=== PATIENT | female | born 1960 | race Caucasian/White ===

== ENCOUNTER 2019-11-22 09:16 | Outpatient (CLI) | payer OTHER, SELFPAY ==
--- NOTE | 2019-11-22 09:24 | CT_ITS ---
WS: [id number] CT ABDOMEN PELVIS TECHNIQUE: Contrast-enhanced CT of the abdomen and pelvis with coronal and sagittal reformatted image s. CLINICAL INFORMATION: RLQ PAIN COMPARISON: None. DLP: 949.[address] scans at [facility] use at least one of these dose optimization techniques: automat ed exposure control; mA and/or kV adjustment per patient size (includes targeted exams where dose is matched to clinical indication); or iterative reconstruction. FINDINGS: Mild diffuse fatty infiltration liver. Left hepatic cyst measuring 11 mm. Normal gallbladder. Normal portal vein and splenic vein. Normal spleen. Lung bases are well aerated. Adrenal glands are normal. Normal renal parenchymal enhancement. Normal caliber abdominal aorta. Urine distended bladder. Rectosigmoid constipation. Tiny fat-containing umbilical hernia. No abdominal or pelvic lymphadenopat hy. Lumbar curve convex left. CT/CT abdomen pelvis w con* [id number] IMPRESSION: 1. Mild diffuse fatty infiltration the liver. 2. Small hepatic cyst measuring 11 mm. 3. Normal renal Prig[place] enhancement. No hydronephrosis. 4. No abdominal or pelvic lymphadenopathy. 5. Rectosigmoid constipation. 6. Normal caliber abdominal aorta. 7. Urine distended bladder.
[2019-11-22] MEDS: iohexol 300 mg/mL 50 mL Btl PO (10:26)
[2019-11-22] MEDS: iohexol 300 mg/mL 100 mL Btl IV (11:20)
== END 2019-11-22 09:17 | disposition home or self-care (01) ==
PROVIDERS: Family Provider Family Medicine; PCP Family Medicine; Visit Provider Nurse Practitioner Family
DX: R10.31 Right lower quadrant pain (principal); K76.0 Fatty (change of) liver, not elsewhere classified; K76.89 Other specified diseases of liver; K59.09 Other constipation
CPT/HCPCS: 74177; Q9967

== ENCOUNTER 2020-05-23 13:55 | Outpatient (CLI) | payer OTHER, SELFPAY ==
--- NOTE | 2020-05-23 14:00 | MM_ITS ---
WS: [id number] BILATERAL SCREENING DIGITAL MAMMOGRAM WITH CAD HISTORY: SCREENING COMPARISON: 06/08/2014 and 03/30/2009 Bilateral CC and MLO views submitted. Computer aided detection analyzed. Breast composition: The breasts are heterogeneously dense, which may obscure small masses. No suspici ous masses, microcalcifications or architectural distortion. Benign-appearing calcifications in each breast. Mild progression of these calcifications the prior study. There are mildly prominent lymph no milly in the LEFT axilla which were also present on the prior study from 03/30/2009. MM/[place] [id number] IMPRESSION: BI-RADS: 2-Benign FOLLOW UP: 1 Year Follow-up
== END 2020-05-23 13:56 | disposition home or self-care (01) ==
PROVIDERS: PCP Nurse Practitioner Family; Visit Provider Nurse Practitioner Family
DX: Z12.31 Encounter for screening mammogram for malignant neoplasm of breast (principal)
CPT/HCPCS: 77067

== ENCOUNTER 2022-11-07 14:37 | Outpatient (CLI) | payer OTHER, SELFPAY ==
--- NOTE | 2022-11-07 14:47 | MM_ITS ---
WS: [id number] BILATERAL 3D TOMOSYNTHESIS DIGITAL SCREENING MAMMOGRAPHY WITH CAD CLINICAL INFORMATION: SCREENING HISTORY: Screening mammogram. No current complaints. COMPARISON: 2020 TECHNIQUE: Bilateral CC and MLO views. FINDINGS: The breasts are composed of heterogeneous fibroglandular density tissue, which can limit the detectio n of small underlying mass lesions. No suspicious mass, asymmetry, calcifications, or architectural d istortion. No evidence of malignancy. Stable punctate and clustered calcifications bilaterally. MM/[place] [id number] IMPRESSION: BI-RADS: 2-Benign FOLLOW UP: 1 Year Follow-up Recommend return to annual screening mammography.
== END 2022-11-07 14:38 | disposition home or self-care (01) ==
LOC: RAD 14:39
PROVIDERS: PCP Nurse Practitioner Family; Visit Provider Nurse Practitioner Family
DX: Z12.31 Encounter for screening mammogram for malignant neoplasm of breast (principal)
CPT/HCPCS: 77063; 77067

== ENCOUNTER 2022-11-20 14:54 | Outpatient (CLI) | payer OTHER, SELFPAY ==
--- NOTE | 2022-11-20 15:21 | US_ITS ---
WS: [id number] THYROID ULTRASOUND HISTORY: ENLARGED THYROID; NONTOXIC GOITER COMPARISON: None available. Right lobe: 1.2 cm x 1.2 cm x 3.7 cm (w x ap x l). Volume: 2.8 cm3. Normal size and echotexture. No significant are dominant nodules are present. Left lobe: 1.7 cm x 0.8 cm x 3.4 cm (w x ap x l). Volume: 2.3 cm3. Normal size and echotexture. No significant or dominant nodules are present. Isthmus: 0.2 cm. US/US thyroid [id number] IMPRESSION: Normal thyroid ultrasound.
== END 2022-11-20 14:55 | disposition home or self-care (01) ==
LOC: RAD 14:54
PROVIDERS: PCP Nurse Practitioner Family; Visit Provider Nurse Practitioner Family
DX: E04.9 Nontoxic goiter, unspecified (principal)
CPT/HCPCS: 76536

== ENCOUNTER 2023-02-01 11:00 | Day surgery (SDC) | payer OTHER, SELFPAY ==
[2023-02-01] VITALS (8 sets, daily range): BP systolic 137–171; BP diastolic 66–106; PULSE 82–104; RESP 12–20; TEMP 36.1–36.8; O2SAT 96–100; BMI 26.5
--- NOTE | 2023-02-01 11:24 | XRR_ITS ---
PROCEDURE INFORMATION: Exam: XR Chest Exam date and time: 02/01/2023 11:31 AM Age: 62 years old Clinical indication: Sternal or substernal pain; Patient HX: PT choked on food, feels something stuck in her chest in sternal area; Additional info: Eposphageal pain-fb TECHNIQUE: Imaging protocol: Radiologic exam of the chest. Views: 1 view. COMPARISON: CT abdomen pelvis w con* [id number] 11/22/2019 11:16 AM FINDINGS: Lungs: Unremarkable. No consolidation. Pleural spaces: Unremarkable. No pleural effusion. No pneumothorax. Heart/Mediastinum: Unremarkable. No cardiomegaly. No radiopaque foreign body detected within the esophagus. Bones/joints: There is mild scoliosis of the thoracolumbar spine. No acute bony abnormalities. XR/XR chest 1V portable [id number] IMPRESSION: Negative for active cardiopulmonary disease.
--- NOTE | 2023-02-01 11:26 | W.ED.ABDPA2 ---
HPI - Abdominal Pain General: Chief Complaint: Airway/Esophagus Foreign Body Stated Complaint: food lodged in throat Time Seen by Provider: 02/01/23 11:12 Source: patient Mode of arrival: ambulatory Limitations: no limitations History of Present Illness: This patient presents to our emergency department because of sensation of something lodged in her esophagus. She states that she was in her normal state of health this morning and decided to take her usual biotin pills. She states that she took 3 at once which she does not usually do and then noted that something felt like it lodged in her esophagus. She states that she attempted to eat some food consisting of chicken and the symptoms seem to worsen. She has had consistent and persistent discomfort in her lower sternal region and she has not vomited but has difficulty with swallowing secretions and has had gagging. She does relate that rarely on occasion in the past she has had a little bit difficulty with swallowing some food products and she has had to gag and vomit it back up but its not been very pervasive and has been very unusual for least episodes to occur. She denies any bloody emesis etc. She denies any history of cardiovascular disease. She states the symptoms began after the pills and as described above. She currently takes no other prescribed medication and is otherwise in good health. Pain Consistency: constant Associated Symptoms: Denies chills, dysuria, fever(s), heartburn, hematemesis, syncope and vomiting Review of Systems Const: Denies: fever(s) or chills Eyes: Denies: change in vision ENMT: Denies: throat pain, odynophagia, nasal discharge or nasal congestion Card: Denies: palpitations, syncope or pre-syncope Resp: Denies: productive cough or non-productive cough GI: Reports: abdominal pain; Denies: vomiting, hematemesis or heartburn : Denies: flank pain, difficulty voiding or dysuria Musc: Denies: back pain, extremity pain or extremity swelling Neuro: Denies: headache(s), numbness in extremities or weakness in extremities Neo/Lymph: Denies: easy bruising or easy bleeding Physical Exam Narrative: EXAM NARRATIVE: Appears slightly uncomfortable but is able to answer questions and interact appropriately. Const: COMMON NORMALS: average body habitus, patient oriented x3, healthy appearing and alert GENERAL APPEARANCE: cooperative ORIENTATION/CONSCIOUSNESS: Yes awake HENMT: COMMON NORMALS: normocephalic, Normal nasal mucous membranes and turbinates present, moist oral mucous membranes and oropharynx normal HEAD & SCALP: normocephalic FACE & SINUS: normal facial exam NOSE: Normal nasal mucous membranes and turbinates present Eye: COMMON NORMALS: Equal, round and reactive pupils present, EOMs intact bilaterally and conjunctivae normal CONJUNCTIVA: Yes conjunctivae normal PUPIL: Yes Equal, round and reactive pupils present Neck/C-Spine: COMMON NORMALS: full ROM, no lymphadenopathy, supple and Thyroid normal THYROID: Thyroid normal Chest: COMMONS NORMALS: normal inspection of the chest and normal palpation of entire chest wall Resp: COMMON NORMALS: normal respiratory effort, No retractions, No use of accessory muscles and clear to auscultation bilaterally EFFORT & INSPECTION: Yes able to speak in complete sentences AUSCULTATION: clear to auscultation bilaterally Cardio: COMMON NORMALS: regular rate, regular rhythm, No murmurs present (Cardio) and Peripheral pulses 2+ throughout RATE: regular rate RHYTHM: regular rhythm PERIPHERAL PULSES: Peripheral pulses 2+ throughout GI: COMMON NORMALS: Normal to inspection, nondistended, normoactive bowel sounds present, Soft to palpation, non-tender and no masses PALPATION: Yes Soft to palpation : COMMON NORMALS: Yes no CVA tenderness BLADDER/KIDNEY EXAM: Yes no CVA tenderness Back/Pelvis: COMMON NORMALS: no CVA tenderness, thoracic and lumbar spine normal to inspection, no thoracic nor lumbar tenderness and thoraco-lumbar ROM normal Extremity: COMMON NORMALS: normal to inspection, full ROM, capillary refill normal, no calf tenderness and no pedal edema Neuro: COMMON NORMALS: patient oriented x3, moves all extremities, no focal motor deficits and no sensory deficits noted SENSORIUM/ORIENTATION: Yes alert CRANIAL NERVES: Yes CN normal except as noted Psych: COMMON NORMALS: mental status grossly normal Skin: COMMON NORMALS: no rashes or lesions noted, no wounds and turgor normal GENERAL SKIN EXAM: no rashes or lesions noted and turgor normal Course Reevaluation(s): Reevaluation #1: After glucagon patient was reevaluated. She continues to be unable to swallow secretions and/or water. She has regurgitated each of those on several occasions. At this point she will be referred for endoscopy. Time: 12:02 Consultations: Consultation #1: Consulted Dr. Gaspar who is on-call for endoscopy. He will come in and evaluate her for EGD. Time: 12:03 Vital Signs: Vital signs: Vital Signs Temperature 98.3 F 02/01/23 11:05 Pulse Rate 90 02/01/23 11:05 Respiratory Rate 16 02/01/23 11:05 Blood Pressure 171/106 02/01/23 11:05 Pulse Oximetry 96 02/01/23 11:05 Oxygen Delivery Me thod Room Air 02/01/23 11:05 MDM - Abdominal Pain Medical Decision Making This patient came to the emergency department with the questionable history that suggested possible impacted medication and or possible food bolus in her distal esophagus. She did have a history of rare but similar symptoms to a lesser extent in the past has never required intervention. She is uncomfortable but does not have any suggestion of impending airway compromise, or other pathology needing immediate attention. We will give her a trial of glucagon and then reevaluate and then if unsuccessful and still symptomatic we will go ahead and discuss with endoscopy. Patient remained stable but failed to respond to usual medication measures for possible esophageal food bolus. She continues to have difficulty swallowing secretions water etc. We have contacted general surgery for endoscopy. Lab Data I reviewed the patient's lab results. Labs/Radiology: Radiology Impressions Chest X-Ray 02/01/23 11:24 IMPRESSION: Negative for active cardiopulmonary disease. Discharge Plan Discharge Patient Disposition: Placed in Observation Clinical Impression: Esophageal foreign body Condition: Stable Prescriptions: No Action Vitamin B-12 1,000 mcg Tablet 1,000 mcg PO QAM Vitamin C 500 mg Tablet 500 mg PO QAM biotin 10,000 mcg Capsule 30,000 mcg PO QAM Rx Instructions: (3 CAPS) Vitamin D3 25 mcg (1,000 unit) Capsule 1,000 unit PO QAM Referrals: Lucy Ghosh FNP [Primary Care Provider] - Coding Level of Care Code ED Certified Athletic Trainer for Brigida Shelton
[2023-02-01] MEDS: ondansetron 2 mg/ML SDV 2 mL 4 MG IVP (11:45)
[2023-02-01] MEDS: glucagon 1 mg/mL KIT 1 mL IV (11:46)
--- NOTE | 2023-02-01 11:52 | PC.NURSE ---
PT PLACED ON CONTINUOUS SPO2, NIBP, AND CM.
--- NOTE | 2023-02-01 13:04 | PM.HP ---
Providers/Chief Complaint Primary Care Provider: RENATO Abarca Chief Complaint: food lodged in throat History of Present Illness Tonia Norman is a 62 year old female who presented to the hospital with 1 day history of inability to swallow her saliva. She reports that she had multiple pills this morning and then ate some chicken has a feeling of food caught in the bottom of her chest. She has had this happen before but was able to vomit up the food in the past. Pain is located in the center of her chest and does not radiate. Glucagon was attempted in the ER without success. Review of Systems General: Reports: 10 or more systems reviewed and unremarkable except in HPI and below Medications/Allergies Home Medications Medication Instructions Recorded Confirmed Last Taken Type ascorbic acid (vitamin C) 500 mg 500 mg PO QAM 02/01/23 02/01/23 02/01/23 History tablet (Vitamin C) biotin 10,000 mcg capsule 30,000 mcg PO QAM 02/01/23 02/01/23 02/01/23 History cholecalciferol (vitamin D3) 25 1,000 unit PO QAM 02/01/23 02/01/23 02/01/23 History mcg (1,000 unit) capsule (Vitamin D3) cyanocobalamin (vitamin B-12) 1,000 mcg PO QAM 02/01/23 02/01/23 02/01/23 History 1,000 mcg tablet (Vitamin B-12) Allergies Allergy/AdvReac Type Severity Reaction Status Date / Time No Known Allergies Allergy Verified 02/01/23 11:09 Vitals/I&O/Wt Last Vital Signs Temp 98.3 F 02/01/23 11:05 Pulse 90 02/01/23 11:05 Resp 16 02/01/23 11:05 BP 171/106 02/01/23 11:05 Pulse Ox 96 02/01/23 11:05 O2 Del Method Room Air 02/01/23 11:05 Weight last 48 hrs Weight 145 lb Physical Exam Narrative: General : Patient is well developed , no acute distress, oriented x3 Head : Normal cephalic, a-traumatic. Ears : Pinnae and external canal are normal. Hearing is normal. Eyes : PERRLA, Sclera and injection are normal. No conjunctival discharge. Nose : Mucous membranes are without erythema. Throat : buccal mucosa is normal, gums are without significant recession or hypertrophy. Lungs : Equal chest rise bilaterally, no use of accessory muscles, trachea is midline. Cor : Rate and rhythm are normal. Abdomen : Soft, ND, NT, no g/r/m Extremities : No edema, no cyanosis or clubbing, dorsalis pedis pulses are present bilaterally, non-tender to palpation of calves. Upper extremities are normal bilaterally. Back : non-tender to palpation, no CVA tenderness. Neuro : CN II - XII intact, Upper and lower extremities have equal and full strength A&P Assessment and plan (1) Esophageal foreign body: Plan EGD The risks and benefits of the procedure, including bleeding, infection, intestinal perforation requiring surgery, missed lesion were explained to the patient. The patient is understanding of the risks and wishes to proceed. Attestations Medical Necessity Statement*: Home after the procedure Coding Level of Care Code 84613 Diagnoses Esophageal foreign body T18.108A
[2023-02-01] MEDS: lactated ringers 1,000 ML 100 ML IV (13:15)
--- NOTE | 2023-02-01 13:51 | PM.DCS ---
Discharge Providers Date of Discharge: February 01, 2023 Attending Provider at Discharge: Oleksandr Gaspar DO Primary Care Provider: RENATO Abarca Diagnoses at Discharge Discharge Diagnosis (1) Esophageal foreign body: Status: Acute Reason for Visit Reason for Visit: food lodged in throat Hospital Course Hospital Course This very pleasant 62-year-old female who presented to the hospital with esophageal food impaction. She underwent EGD with clearance of the impaction. She is discharged home in good condition Physical Exam Narrative: General : Patient is well developed , no acute distress, oriented x3 Head : Normal cephalic, a-traumatic. Ears : Pinnae and external canal are normal. Hearing is normal. Eyes : PERRLA, Sclera and injection are normal. No conjunctival discharge. Nose : Mucous membranes are without erythema. Throat : buccal mucosa is normal, gums are without significant recession or hypertrophy. Lungs : Equal chest rise bilaterally, no use of accessory muscles, trachea is midline. Cor : Rate and rhythm are normal. Abdomen : Soft, ND, NT, no g/r/m Extremities : No edema, no cyanosis or clubbing, dorsalis pedis pulses are present bilaterally, non-tender to palpation of calves. Upper extremities are normal bilaterally. Back : non-tender to palpation, no CVA tenderness. Neuro : CN II - XII intact, Upper and lower extremities have equal and full strength Discharge Data Studies Completed and Pending Completed Studies During Hospitalization Category Date Time Status XR chest 1V portable [id number] Stat Exams 02/01/23 11:24 Completed Radiology Impressions Chest X-Ray 02/01/23 11:24 IMPRESSION: Negative for active cardiopulmonary disease. Procedures Performed EGD with clearance of esophageal food impaction Vitals Last Vital Signs Temp 97 F L 02/01/23 13:26 Pulse 96 02/01/23 13:26 Resp 16 02/01/23 13:26 BP 171/106 02/01/23 13:26 Pulse Ox 99 02/01/23 13:26 O2 Del Method Room Air 02/01/23 13:26 Discharge Plan Discharge Patient Disposition: Home Condition: Stable Prescriptions: Continued Vitamin B-12 1,000 mcg Tablet 1,000 mcg PO QAM Vitamin C 500 mg Tablet 500 mg PO QAM biotin 10,000 mcg Capsule 30,000 mcg PO QAM Rx Instructions: (3 CAPS) Vitamin D3 25 mcg (1,000 unit) Capsule 1,000 unit PO QAM Discharge Orders: Discharge Order (Routine); Ordered 02/01/23 Ordered By: Oleksandr Gaspar Referrals: Lucy Ghosh FNP [Primary Care Provider] - Oleksandr Gaspar DO [Physician] - 2 weeks Discharge Diet: Full LIquid Discharge Activity: Resume usual activity Activity Restrictions/Additional Instructions: Full liquid diet for 2 days Discharge Attestations Time Spent in Discharge Care*: less than 30 min Quality Metrics Clinical Quality Measures [ No reported AMI, CVA or VTE this stay] Coding Level of Care Code Acute Code for Chg Fwd Diagnoses Esophageal foreign body T18.108A
--- NOTE | 2023-02-01 13:52 | P.PCN_ITS ---
PACU note Narrative: VSS, Good respiratory effort, report to [employer] Exam: awake
--- NOTE | 2023-02-01 13:52 | P.ANESASSM_ITS ---
Pre-Anesthetic Assessment Height/Weight: Height 1.57 m Weight 65.771 kg Temp Pulse Resp BP Pulse Ox O2 Del Method 97.4 F L 99 12 158/66 96 Room Air 02/01/23 13:49 02/01/23 13:49 02/01/23 13:49 02/01/23 13:49 02/01/23 13:49 02/01/23 13:49 Operation Date: 02/01/23 13:00 Proposed Procedures p EGD(Not Applicable) - Oleksandr Gaspar DO Familial anesthetic complications: none Was Beta Dane taken within 24 hours: N/A Was Clonidine taken within 24 hours: N/A Social No alcohol and No tobacco Exam alert, oriented x 3, clear to auscultation bilaterally and regular rate & rhythm Airway Submandibular: within normal limits Cervical ROM: within normal limits Mallampati: Class II Dentition: false GI Food bolus Anesthetic Plan ASA status: 2E Anesthesia: General (RSI) Medications/Allergies Home Medications Medication Instructions Recorded Confirmed Last Taken Type ascorbic acid (vitamin C) 500 mg 500 mg PO QAM 02/01/23 02/01/23 02/01/23 History tablet (Vitamin C) biotin 10,000 mcg capsule 30,000 mcg PO QAM 02/01/23 02/01/23 02/01/23 History cholecalciferol (vitamin D3) 25 1,000 unit PO QAM 02/01/23 02/01/23 02/01/23 History mcg (1,000 unit) capsule (Vitamin D3) cyanocobalamin (vitamin B-12) 1,000 mcg PO QAM 02/01/23 02/01/23 02/01/23 His tory 1,000 mcg tablet (Vitamin B-12) Allergies Allergy/AdvReac Type Severity Reaction Status Date / Time No Known Allergies Allergy Verified 02/01/23 11:09 Current Medications Generic Name Dose Route Start Last Admin Trade Name Freq PRN Reason Stop Dose Admin Lactated Ringer's 1,000 mls @ 100 mls/hr 02/01/23 12:15 02/01/23 13:15 Lactated Ringers IV 100 mls/hr .Q10H YADIRA Administration Data Anesthesia Cardiac Studies: No Data to Display
--- NOTE | 2023-02-01 13:52 | PM.PACU ---
PACU note Narrative: VSS, Good respiratory effort, report to TRANSITION MGR RN Exam: awake
--- NOTE | 2023-02-01 13:53 | ANE.PACU2 ---
Inpatient post-anesthesia follow up: Airway intact: Yes Vital signs: Temperature 97.4 F Pulse Rate 99 Respiratory Rate 12 Blood Pressure 158/66 Pulse Oximetry 96 Oxygen Delivery Me thod Room Air Oxygen Flow Rate Fraction of Inspir ed Oxygen Hydration adequate: Yes Nausea and vomiting: No Pain level: 2 Mental status: Baseline
== END 2023-02-01 14:35 | disposition home or self-care (01) ==
LOC: ER 12:38 → GILAB 13:04
PROVIDERS: Emergency Provider Emergency Medicine; PCP Nurse Practitioner Family; Visit Provider Surgery
PROC: 0DJ08ZZ Inspection of Upper Intestinal Tract, Via Natural or Artificial Opening Endoscopic (ICD-10-PCS; CPT 43235; principal; 2023-02-01 13:00)
DX: X58.XXXA Exposure to other specified factors, initial encounter (principal); T18.108A Unspecified foreign body in esophagus causing other injury, initial encounter
CPT/HCPCS: 43247; 71045; 99285; J0330; J1100; J1610; J2405; J2704; J3010; J7120

== ENCOUNTER 2023-04-17 07:20 | Day surgery (SDC) | payer OTHER, SELFPAY ==
[2023-04-15 10:20] VITALS: BMI 26.5
[2023-04-17 07:40] VITALS: BP 146/72; PULSE 65; RESP 16; TEMP 36.3; O2SAT 98
[2023-04-17] MEDS: sodium chloride 0.9% 1,000 ML 30 ML IV (07:50)
--- NOTE | 2023-04-17 08:06 | ANES.PREANE2 ---
Pre-Anesthetic Assessment Height/Weight: Height 1.57 m Weight 65.771 kg Temp Pulse Resp BP Pulse Ox O2 Del Method 97.3 F L 65 16 146/72 98 Room Air 04/17/23 07:40 04/17/23 07:40 04/17/23 07:40 04/17/23 07:40 04/17/23 07:40 04/17/23 07:40 Preop Diagnosis: dysphagia Operation Date: 04/17/23 08:30 Proposed Procedures p [id number] egd w/balloon dial R13.10(Not Applicable) - Owen Santos MD Familial anesthetic complications: none Was Beta Dane taken within 24 hours: N/A Was Clonidine taken within 24 hours: N/A Last intake: Intake Last Liquid Date 04/16/23 Last Liquid Time 20:30 Last Solid Date 04/16/23 Last Solid Time 20:30 Social Alcohol (occasional) and No tobacco Exam alert and oriented x 3 Airway Submandibular: within normal limits Cervical ROM: within normal limits Mallampati: Class I Dentition: false History/ROS No significant history except as noted Pulmonary None reported CV/HEM None reported None reported Hepatic None reported GI None reported Metabolic None reported Musc/skel None reported Neuropsych None reported Anesthetic Plan ASA status: 2 Anesthesia: Anesthesia Evaluation, General and MAC Medications/Allergies Home Medications Medication Instructions Recorded Confirmed Last Taken Type ascorbic acid (vitamin C) 500 mg 500 mg PO QAM 02/01/23 04/15/23 04/15/23 History tablet (Vitamin C) biotin 10,000 mcg capsule 30,000 mcg PO QAM 02/01/23 04/15/23 04/15/23 History cholecalciferol (vitamin D3) 25 1,000 unit PO QAM 02/01/23 04/15/23 04/15/23 History mcg (1,000 unit) capsule (Vitamin D3) cyanocobalamin (vitamin B-12) 1,000 mcg PO QAM 02/01/23 04/15/23 04/15/23 History 1,000 mcg tablet (Vitamin B-12) pantoprazole 40 mg tablet,delayed 40 mg PO BID 6 weeks #84 tabs 02/18/23 04/15/23 Unknown Rx release (Protonix) Allergies Allergy/AdvReac Type Severity Reaction Status Date / Time No Known Allergies Allergy Verified 04/17/23 07:39 Current Medications Generic Name Dose Route Start Last Admin Trade Name Jay PRN Reason Stop Dose Admin Sodium Chloride 1,000 mls @ 30 mls/hr 04/17/23 07:45 04/17/23 07:50 Sodium Chloride 0.9% IV 30 mls/hr .Q24H YADIRA Administration PFSH Anesthesia Surgical History Hx of section Family History Mother Cancer stomach cancer Social History (Updated 03/20/23 @ 10:[address]) Smoking and tobacco status: never smoked Alcohol intake: current Alcohol intake frequency: holidays/special occasions only Data Anesthesia Cardiac Studies: No Data to Display
--- NOTE | 2023-04-17 08:40 | W.PM.OPSUD ---
Surgery/Procedure H&P Update DATE OF PROCEDURE: April 17, 2023 DATE H&P PERFORMED: 03/20/23 H&P UPDATE INFORMATION: I have reviewed H&P completed within last 30 days, I have examined patient prior to procedure, No changes to prior documentation and H&P is in [facility] EMR on date indicated PREOP DIAGNOSIS: dysphagia PLANNED PROCEDURE: Operation Date: 04/17/23 08:30 Proposed Procedures p [id number] egd w/balloon dial R13.10(Not Applicable) - Owen Santos MD
[2023-04-17 08:54] VITALS: BP 121/71; PULSE 77; RESP 16; TEMP 36.1; O2SAT 94
[2023-04-17 09:04] VITALS: BP 129/75; PULSE 96; RESP 16; O2SAT 96
[2023-04-17 09:25] VITALS: BP 122/88; PULSE 73; RESP 16; O2SAT 98
--- NOTE | 2023-04-17 15:07 | ANE.PACU2 ---
Inpatient post-anesthesia follow up: Airway intact: Yes Vital signs: Temperature 97 F Pulse Rate 73 Respiratory Rate 16 Blood Pressure 122/88 Pulse Oximetry 98 Oxygen Delivery Me thod Room Air Oxygen Flow Rate Fraction of Inspir ed Oxygen Hydration adequate: Yes Nausea and vomiting: No Pain level: 1 Mental status: Baseline
== END 2023-04-17 10:10 | disposition home or self-care (01) ==
PROVIDERS: PCP Nurse Practitioner Family; Visit Provider Surgery
DX: R13.10 Dysphagia, unspecified (principal); K29.70 Gastritis, unspecified, without bleeding; K20.0 Eosinophilic esophagitis; D13.0 Benign neoplasm of esophagus
CPT/HCPCS: 43239; 88305; J2704; J7030

== ENCOUNTER 2023-11-27 14:03 | Outpatient (CLI) | payer OTHER, SELFPAY ==
--- NOTE | 2023-11-27 14:07 | MM_ITS ---
WS: [id number] BILATERAL 3D TOMOSYNTHESIS DIGITAL SCREENING MAMMOGRAPHY WITH CAD CLINICAL INFORMATION: SCREENING HISTORY: Screening mammogram. No current complaints. COMPARISON: 2022 TECHNIQUE: Bilateral CC and MLO views. FINDINGS: The breasts are composed of heterogeneous fibroglandular density tissue, which can limit the detectio n of small underlying mass lesions. No suspicious mass, asymmetry, calcifications, or architectural d istortion. No evidence of malignancy. Incidental punctate and clustered calcifications similar in [place]. Vascular calcification. IMPRESSION: MM/[place] [id number] BI-RADS: 2-Benign FOLLOW UP: 1 Year Follow-up Recommend return to annual screening mammography.
== END 2023-11-27 14:04 | disposition home or self-care (01) ==
LOC: RAD 14:03
PROVIDERS: PCP Nurse Practitioner Family; Visit Provider Nurse Practitioner Family
DX: Z12.31 Encounter for screening mammogram for malignant neoplasm of breast (principal)
CPT/HCPCS: 77063; 77067

== ENCOUNTER → 2024-01-07 14:17 | Outpatient (BNVA) | payer OTHER, SELFPAY | PROVIDERS: PCP Nurse Practitioner Family; Visit Provider Podiatrist Foot & Ankle Surgery | DX: M79.671 Pain in right foot (principal); M79.672 Pain in left foot; M21.611 Bunion of right foot; M21.612 Bunion of left foot; L60.8 Other nail disorders | CPT/HCPCS: 73630 ==

== ENCOUNTER 2024-01-22 10:49 | Outpatient (CLI) | payer OTHER, SELFPAY | END 2024-01-22 10:50 | disposition home or self-care (01) | LOC: LAB 10:51 | PROVIDERS: PCP Nurse Practitioner Family; Visit Provider Surgery | DX: R19.7 Diarrhea, unspecified (principal) | CPT/HCPCS: 83630; 83993 ==

== ENCOUNTER 2024-02-16 07:58 | Day surgery (SDC) | payer OTHER, SELFPAY ==
[2024-02-16 08:13] VITALS: BP 136/84; PULSE 73; RESP 18; TEMP 36.7; O2SAT 98; BMI 28.3
[2024-02-16] MEDS: sodium chloride 0.9% 1,000 ML 30 ML IV (08:27)
--- NOTE | 2024-02-16 08:41 | P.ANESASSM_ITS ---
Pre-Anesthetic Assessment Height/Weight: Height 1.57 m Weight 70.307 kg Temp Pulse Resp BP Pulse Ox O2 Del Method 98.1 F 73 18 136/84 98 Room Air 02/16/24 08:13 02/16/24 08:13 02/16/24 08:13 02/16/24 08:13 02/16/24 08:13 02/16/24 08:13 Operation Date: 02/16/24 09:15 Proposed Procedures p Colonoscopy 08933, G0105, Z12.11(Not Applicable) - Owen Santos MD Familial anesthetic complications: None Was Beta Dane taken within 24 hours: N/A Was Clonidine taken within 24 hours: N/A Last intake: Intake Last Liquid Date 02/16/24 Last Liquid Time 04:30 Last Solid Date 02/15/24 Last Solid Time 12:00 Social No alcohol and No tobacco Exam alert, oriented x 3, clear to auscultation bilaterally and regular rate & rhythm Airway Mallampati: Class II Dentition: false GI Gastroesophageal Reflux Disease Anesthetic Plan ASA status: 2 Anesthesia: MAC Risk of > 500 ml blood loss (7ml/kg in children): No Medications/Allergies Home Medications Medication Instructions Recorded Confirmed Last Taken Type ascorbic acid (vitamin C) 500 mg 500 mg PO QAM 02/01/23 02/11/24 02/12/24 History tablet (Vitamin C) cholecalciferol (vitamin D3) 25 1,000 unit PO QAM 02/01/23 02/11/24 02/12/24 History mcg (1,000 unit) capsule (Vitamin D3) cyanocobalamin (vitamin B-12) 1,000 mcg PO QAM 02/01/23 02/11/24 02/12/24 Histor y 1,000 mcg tablet (Vitamin B-12) acetaminophen 500 mg tablet 500 mg PO Q6H PRN Pain 02/16/24 02/16/24 Unknown History Allergies Allergy/AdvReac Type Severity Reaction Status Date / Time No Known Allergies Allergy Verified 02/11/24 10:42 Current Medications Generic Name Dose Route Start Last Admin Trade Name Freq PRN Reason Stop Dose Admin Sodium Chloride 1,000 mls @ 30 mls/hr 02/16/24 08:15 02/16/24 08:27 Sodium Chloride 0.9% IV 30 mls/hr .Q24H YADIRA Administration PFSH Anesthesia Surgical History Hx of section Family History Mother Cancer stomach cancer Social History Smoking and tobacco/nicotine status: never used tobacco/nicotine Alcohol intake: current Alcohol intake frequency: holidays/special occasions only Data Anesthesia Cardiac Studies: No Data to Display
--- NOTE | 2024-02-16 09:10 | P.HPUD_ITS ---
Surgery/Procedure H&P Update DATE OF PROCEDURE: February 16, 2024 DATE H&P PERFORMED: 01/19/24 H&P UPDATE INFORMATION: I have reviewed H&P completed within last 30 days, I have examined patient prior to procedure, No changes to prior documentation and [place] [facility] [place] PLANNED PROCEDURE: Operation Date: 02/16/24 09:15 Proposed Procedures p Colonoscopy 74221, G0105, Z12.11(Not Applicable) - Owen Santos MD
--- NOTE | 2024-02-16 09:10 | W.PM.OPSUD ---
Surgery/Procedure H&P Update DATE OF PROCEDURE: February 16, 2024 DATE H&P PERFORMED: 01/19/24 H&P UPDATE INFORMATION: I have reviewed H&P completed within last 30 days, I have examined patient prior to procedure, No changes to prior documentation and [place] is in [facility] [place] date indicated PLANNED PROCEDURE: Operation Date: 02/16/24 09:15 Proposed Procedures p Colonoscopy 59938, G0105, Z12.11(Not Applicable) - Owen Santos MD
[2024-02-16 09:33] VITALS: BP 115/68; PULSE 95; RESP 12; TEMP 36.4; O2SAT 96
[2024-02-16 09:37] VITALS: BP 127/70; PULSE 70; RESP 16; O2SAT 99
--- NOTE | 2024-02-16 09:55 | ANE.PACU2 ---
Inpatient post-anesthesia follow up: Airway intact: Yes Vital signs: Temperature 97.5 F Pulse Rate 70 Respiratory Rate 16 Blood Pressure 127/70 Pulse Oximetry 99 Oxygen Delivery Me thod Room Air Oxygen Flow Rate Fraction of Inspir ed Oxygen Hydration adequate: Yes Nausea and vomiting: No Pain level: 1 Mental status: Baseline
== END 2024-02-16 09:55 | disposition home or self-care (01) ==
PROVIDERS: PCP Nurse Practitioner Family; Visit Provider Surgery
PROC: 0DJD8ZZ Inspection of Lower Intestinal Tract, Via Natural or Artificial Opening Endoscopic (ICD-10-PCS; CPT 45378; principal; 2024-02-16 09:15)
DX: Z12.11 Encounter for screening for malignant neoplasm of colon (principal); K21.9 Gastro-esophageal reflux disease without esophagitis
CPT/HCPCS: 45378; J2704; J7030

== ENCOUNTER 2024-08-28 07:46 | Emergency (ER) | payer OTHER, SELFPAY ==
[2024-08-28 08:02] VITALS: BP 130/94; PULSE 82; RESP 18; TEMP 37.2; O2SAT 98; BMI 27.4
--- NOTE | 2024-08-28 09:14 | ED_ITS ---
HPI - Fall General: Chief Complaint: Fall Stated Complaint: fell, hit head Time Seen by Provider: 08/28/24 08:29 History of Present Illness: This patient is a 63-year-old white female who slipped on her front porch this morning and struck the back of her head. She did sustain a small laceration. No loss of consciousness. She is not on any blood thinners. Related Data Home Medications Medication Instructions Recorded Confirmed ascorbic acid (vitamin C) 500 mg 500 mg PO QAM 02/01/23 02/11/24 tablet (Vitamin C) cholecalciferol (vitamin D3) 25 1,000 unit PO QAM 02/01/23 02/11/24 mcg (1,000 unit) capsule (Vitamin D3) cyanocobalamin (vitamin B-12) 1,000 mcg PO QAM 02/01/23 02/11/24 1,000 mcg tablet (Vitamin B-12) acetaminophen 500 mg tablet 500 mg PO Q6H PRN Pain 02/16/24 02/16/24 Allergies Allergy/AdvReac Type Severity Reaction Status Date / Time No Known Allergies Allergy Verified 08/28/24 08:11 Review of Systems General: Reports: 10 or more systems reviewed and unremarkable except in HPI and below Skin/Breast: Reports: other (Posterior scalp laceration) PFSH ED PFSH: Surgical History Hx of section Family History Mother Cancer stomach cancer Social History Smoking and tobacco/nicotine status: never used tobacco/nicotine Alcohol intake: current Alcohol intake frequency: holidays/special occasions only Physical Exam Const: COMMON NORMALS: no acute distress, patient oriented x3 and no limitations GENERAL APPEARANCE: cooperative and comfortable HENMT: COMMON NORMALS: normocephalic, atraumatic, Normal nasal mucous membranes and turbinates present, moist oral mucous membranes and oropharynx normal HEAD & SCALP: normal to inspection, normocephalic and atraumatic FACE & SINUS: normal facial exam NOSE: Normal nasal mucous membranes and turbinates present Eye: COMMON NORMALS: Equal, round and reactive pupils present, EOMs intact bilaterally and conjunctivae normal GENERAL EYE: appearance normal, both eyes and all related structures CONJUNCTIVA: Yes conjunctivae normal PUPIL: Yes Equal, round and reactive pupils present Neck/C-Spine: COMMON NORMALS: supple and no JVD Chest: COMMONS NORMALS: normal inspection of the chest Resp: COMMON NORMALS: normal respiratory effort and clear to auscultation bilaterally AUSCULTATION: clear to auscultation bilaterally Cardio: COMMON NORMALS: no JVD, regular rate, regular rhythm, No gallops pres ent (Cardio), No murmurs present (Cardio) and No rub (Cardio) RATE: regular rate RHYTHM: regular rhythm GI: COMMON NORMALS: Normal to inspection, nondistended, normoactive bowel sounds present, Soft to palpation and non-tender AUSCULTATION: Yes normoactive bowel sounds PALPATION: Yes Soft to palpation : COMMON NORMALS: Yes no CVA tenderness BLADDER/KIDNEY EXAM: Yes no CVA tenderness Back/Pelvis: COMMON NORMALS: no CVA tenderness and thoracic and lumbar spine normal to inspection Extremity: COMMON NORMALS: normal to inspection Neuro: COMMON NORMALS: patient oriented x3 and CN's II-XII intact bilaterally Psych: COMMON NORMALS: mental status grossly normal, Normal thought process present and cooperative THOUGHT PROCESS: Normal thought process present Skin: COMMON NORMALS: no rashes or lesions noted, turgor normal and no jaundice NARRATIVE SKIN EXAM: Approximately 3 cm V shaped laceration over the occipital scalp. GENERAL SKIN EXAM: no rashes or lesions noted and turgor normal Procedures Laceration Laceration 1: Site: scalp Size (cm): 3 Description: irregular Skin layer closed with: other (2 taylor) Course Vital Signs: Vital signs: Vital Signs Temperature 98.9 F 08/28/24 08:02 Pulse Rate 82 08/28/24 08:02 Respiratory Rate 18 08/28/24 08:02 Blood Pressure 130/94 08/28/24 08:02 Pulse Oximetry 98 08/28/24 08:02 Oxygen Delivery Me thod Room Air 08/28/24 08:02 MDM - Fall Medical Decision Making Nursing staff applied antibiotic ointment. Recommended patient have the taylor removed in 10 days. She was discharged in stable condition. No radiology studies performed this visit Discharge Plan Discharge Patient Disposition: Home Clinical Impression: Laceration of scalp Qualifiers: Encounter type: initial encounter Qualified Code(s): S01.01XA - Laceration without foreign body of scalp, initial encounter Condition: Stable Prescriptions: No Action cyanocobalamin (vitamin B-12) [Vitamin B-12] 1,000 mcg Tablet 1,000 mcg PO QAM ascorbic acid (vitamin C) [Vitamin C] 500 mg Tablet 500 mg PO QAM cholecalciferol (vitamin D3) [Vitamin D3] 25 mcg (1,000 unit) Capsule 1,000 unit PO QAM acetaminophen 500 mg Tablet 500 mg PO Q6H PRN (Reason: Pain) Discharge Orders: Discharge ED (Routine); Ordered 08/28/24 Ordered By: Damion Griffin Referrals: Ghosh,Lucy, ELEMENTARY INSTRUCTIONAL COACH [Primary Care Provider] - Activity Restrictions/Additional Instructions: Have taylor removed in 10 days. Coding Level of Care Code ED Bankruptcy Legal Assistant for Brigida Shelton
[2024-08-28] MEDS: neomycin-poly-bacitracin oint 0.9 gm Pkt 1 APPLIC TOPICAL (09:27)
[2024-08-28 09:30] VITALS: BP 139/89; PULSE 79; O2SAT 96
== END 2024-08-28 09:33 | disposition home or self-care (01) ==
PROVIDERS: Emergency Provider Emergency Medicine; PCP Nurse Practitioner Family
DX: S01.01XA Laceration without foreign body of scalp, initial encounter (principal); W19.XXXA Unspecified fall, initial encounter
CPT/HCPCS: 12002; 99283

== ENCOUNTER 2024-08-31 07:20 | Emergency (ER) | payer OTHER, SELFPAY ==
--- NOTE | 2024-08-31 08:05 | CT_ITS ---
WS: [id number] CT HEAD NONCONTRAST HISTORY: head injury TECHNIQUE: Contiguous axial imaging performed through the brain. Bone and soft tissue windows. Sagitt al and coronal reformats reviewed. All CT scans at [facility] use at least one of these dose optimization techniques: automated exposure control; mA and/or kV adjustment per patient size (includ es targeted exams where dose is matched to clinical indication); or iterative reconstruction. DLP: 1024.01 mGy.cm COMPARISON: None available. No acute intracranial hemorrhage, midline shift or mass effect. Mild atrophy and small vessel disease. Ventricles: Normal size with no hydrocephalus. Paranasal sinuses: As visualized are clear. Mastoid air cells: Well pneumatized. Calvarium and scalp: No skull fracture. Acute scalp hematoma of the high density is centered over the RIGHT occiput measuring 3.7 x 0.9 x 3.5 cm. There are associated scalp taylor with a laceration. CT/CT head wo con* [id number] IMPRESSION: 1. No acute intracranial hemorrhage or edema. 2. Acute scalp hematoma centered over the RIGHT occiput measures 3.7 x 0.9 x 3 .5 cm associated with the laceration.
[2024-08-31 08:07] VITALS: BP 131/93; PULSE 88; RESP 17; TEMP 37; O2SAT 97; BMI 27.4
--- NOTE | 2024-08-31 08:18 | ED_ITS ---
HPI - Headache General: Chief Complaint: Headache Stated Complaint: behind head hurtting Time Seen by Provider: 08/31/24 08:02 Source: patient Mode of arrival: ambulatory Limitations: no limitations History of Present Illness: 63-year-old female who states she did champion ve a fall 2 days ago and hit her posterior head had a laceration versus taylor she states that since then she has been having worsening posterior headache states headache sharp in nature rates an 8 out of 10 she denies any LOC with her head injury she denies having head CT at that time states her headaches have worsened denies neck pain denies any other complaints. Associated symptoms: Deny chest pain, fever(s), nausea, rash or vomiting Related Data Home Medications Medication Instructions Recorded Confirmed ascorbic acid (vitamin C) 500 mg 500 mg PO QAM 02/01/23 08/31/24 tablet (Vitamin C) cholecalciferol (vitamin D3) 25 1,000 unit PO QAM 02/01/23 08/31/24 mcg (1,000 unit) capsule (Vitamin D3) cyanocobalamin (vitamin B-12) 1,000 mcg PO QAM 02/01/23 08/31/24 1,000 mcg tablet (Vitamin B-12) acetaminophen 500 mg tablet 1,000 mg PO Q6H PRN Pain 02/16/24 08/31/24 ibuprofen 200 mg tablet 400 mg PO Q6H PRN Pain 08/28/24 08/31/24 Allergies Allergy/AdvReac Type Severity Reaction Status Date / Time No Known Allergies Allergy Verified 08/28/24 08:11 Review of Systems Const: Denies: fever(s), chills, body aches or change in appetite ENMT: Denies: throat pain or dental pain Card: Denies: chest pain Resp: Denies: dyspnea GI: Denies: abdominal pain, nausea, vomiting or diarrhea Musc: Denies: neck pain or back pain Skin/Breast: Denies: rash Neuro: Reports: headache(s) PFSH ED PFSH: Surgical History Hx of section Family History Mother Cancer stomach cancer Social History Smoking and tobacco/nicotine status: never used tobacco/nicotine Alcohol intake: current Alcohol intake frequency: holidays/special occasions only Physical Exam Const: COMMON NORMALS: no acute distress, patient oriented x3 and healthy appearing HENMT: OTHER: Tenderness to posterior head Eye: COMMON NORMALS: Equal, round and reactive pupils present and EOMs intact bilaterally PUPIL: Yes Equal, round and reactive pupils present Neck/C-Spine: COMMON NORMALS: full ROM and supple Chest: COMMONS NORMALS: normal inspection of the chest and normal palpation of entire chest wall Resp: COMMON NORMALS: normal respiratory effort, No retractions, No use of accessory muscles and clear to auscultation bilaterally AUSCULTATION: clear to auscultation bilaterally Cardio: COMMON NORMALS: regular rate, regular rhythm and No murmurs present (Cardio) RATE: regular rate RHYTHM: regular rhythm GI: COMMON NORMALS: Normal to inspection, nondistended, normoactive bowel sounds present, Soft to palpation, non-tender and no masses PALPATION: Yes Soft to palpation Extremity: COMMON NORMALS: normal to inspection and full ROM Neuro: COMMON NORMALS: patient oriented x3, moves all extremities and no focal motor deficits Psych: COMMON NORMALS: mental status grossly normal, Normal thought process present and cooperative THOUGHT PROCESS: Normal thought process present Skin: COMMON NORMALS: no rashes or lesions noted and no wounds GENERAL SKIN EXAM: no rashes or lesions noted Course Vital Signs: Vital signs: Vital Signs Temperature 98.6 F 08/31/24 08:07 Pulse Rate 88 08/31/24 08:07 Respiratory Rate 17 08/31/24 08:07 Blood Pressure 131/93 08/31/24 08:07 Pulse Oximetry 97 08/31/24 08:07 Oxygen Delivery Me thod Room Air 08/31/24 08:07 MDM - Headache Medical Decision Making Patient presents here with a headache head CT here is normal she has been well- appearing here with likely headache from hitting her head no sign subarachnoid hemorrhage she is stable for discharge follow-up with PCP return if worsening. Medical Records I reviewed the patient's medical records. Lab Data Radiology Impressions Head CT 08/31/24 08:05 IMPRESSION: 1. No acute intracranial hemorrhage or edema. 2. Acute scalp hematoma centered over the RIGHT occiput measures 3.7 x 0.9 x 3.5 cm associated with the laceration. All radiology interpretation(s) finalized by discharge Discharge Plan Discharge Patient Disposition: Home Clinical Impression: Headache, Head injury Condition: Stable Prescriptions: No Action cyanocobalamin (vitamin B-12) [Vitamin B-12] 1,000 mcg Tablet 1,000 mcg PO QAM ascorbic acid (vitamin C) [Vitamin C] 500 mg Tablet 500 mg PO QAM cholecalciferol (vitamin D3) [Vitamin D3] 25 mcg (1,000 unit) Capsule 1,000 unit PO QAM acetaminophen 500 mg Tablet 1,000 mg PO Q6H PRN (Reason: Pain) ibuprofen 200 mg Tablet 400 mg PO Q6H PRN (Reason: Pain) Discharge Orders: Discharge ED (Routine); Ordered 08/31/24 Ordered By: Philip Parra Referrals: Lucy Ghosh FNP [Primary Care Provider] - Discharge Diet: Advance as tolerated Discharge Activity: Resume usual activity Patient Instructions: Head Injury (ED) Coding Level of Care Code ED Music Education Adjunct Professor for Brigida Shelton
== END 2024-08-31 09:31 | disposition home or self-care (01) ==
PROVIDERS: Emergency Provider Emergency Medicine; PCP Nurse Practitioner Family
DX: R51.9 Headache, unspecified (principal); S09.90XA Unspecified injury of head, initial encounter; W19.XXXA Unspecified fall, initial encounter
CPT/HCPCS: 70450; 99284

== ENCOUNTER 2024-09-08 15:46 | Emergency (ER) | payer OTHER, SELFPAY ==
[2024-09-08 15:49] VITALS: BP 173/78; PULSE 96; RESP 16; TEMP 36.7; O2SAT 97; BMI 27.4
--- NOTE | 2024-09-08 16:01 | ED_ITS ---
HPI - Recheck/Abnormal Lab/Rx General: Chief Complaint: Recheck/Abnormal Lab/Rx Stated Complaint: taylor removed Time Seen by Provider: 09/08/24 15:50 Source: patient Mode of arrival: ambulatory Limitations: no limitations History of Present Illness: Patient is a 63-year-old female presents to ED today with to have her sutures removed that were placed on 08/28 following a fall. Patient ended up returning to the emergency department on 08/31 for headache and had a CT scan performed which was unremarkable. She states she has been doing well since this. complaint: suture/staple removal Initial visit (ago): day(s) Initial visit for: laceration Returns today for: staple/stitch removal Symptoms since prior visit: no new symptoms Associated symptoms: none Related Data Home Medications Medication Instructions Recorded Confirmed ascorbic acid (vitamin C) 500 mg 500 mg PO QAM 02/01/23 08/31/24 tablet (Vitamin C) cholecalciferol (vitamin D3) 25 1,000 unit PO QAM 02/01/23 08/31/24 mcg (1,000 unit) capsule (Vitamin D3) cyanocobalamin (vitamin B-12) 1,000 mcg PO QAM 02/01/23 08/31/24 1,000 mcg tablet (Vitamin B-12) acetaminophen 500 mg tablet 1,000 mg PO Q6H PRN Pain 02/16/24 08/31/24 ibuprofen 200 mg tablet 400 mg PO Q6H PRN Pain 08/28/24 08/31/24 Allergies Allergy/AdvReac Type Severity Reaction Status Date / Time No Known Allergies Allergy Verified 08/28/24 08:11 Review of Systems Const: Denies: fever(s) GI: Denies: nausea or vomiting Musc: Denies: neck pain Neuro: Denies: headache(s), confusion, behavioral changes or Slurred speech present FORMERLY [facility], [facility] ED PFSH: Surgical History Hx of section Family History Mother Cancer stomach cancer Social History Smoking and tobacco/nicotine status: never used tobacco/nicotine Alcohol intake: current Alcohol intake frequency: holidays/special occasions only Physical Exam Const: COMMON NORMALS: no acute distress, average body habitus, patient oriented x3, no limitations, healthy appearing, alert and well nourished HENMT: HEAD & SCALP: other (healing scalp laceration-two taylor removed) Neuro: COMMON NORMALS: patient oriented x3 SENSORIUM/ORIENTATION: Yes alert Course Vital Signs: Vital signs: Vital Signs Temperature 98.1 F 09/08/24 15:49 Pulse Rate 96 09/08/24 15:49 Respiratory Rate 16 09/08/24 15:49 Blood Pressure 173/78 09/08/24 15:49 Pulse Oximetry 97 09/08/24 15:49 Oxygen Delivery Me thod Room Air 09/08/24 15:49 MDM - Recheck/Abnormal Lab/Rx Medical Decision Making 2 taylor were removed from her healing scalp laceration. She has no other concerns at this time. Differential Diagnosis Likely encounter for removal of sutures No radiology studies performed this visit Discharge Plan Discharge Patient Disposition: Home Clinical Impression: Encounter for staple removal Condition: Stable Prescriptions: No Action cyanocobalamin (vitamin B-12) [Vitamin B-12] 1,000 mcg Tablet 1,000 mcg PO QAM ascorbic acid (vitamin C) [Vitamin C] 500 mg Tablet 500 mg PO QAM cholecalciferol (vitamin D3) [Vitamin D3] 25 mcg (1,000 unit) Capsule 1,000 unit PO QAM acetaminophen 500 mg Tablet 1,000 mg PO Q6H PRN (Reason: Pain) ibuprofen 200 mg Tablet 400 mg PO Q6H PRN (Reason: Pain) Discharge Orders: Discharge ED (Routine); Ordered 09/08/24 Ordered By: Pura Mcfarlane Referrals: Lucy Ghosh FNP [Primary Care Provider] - Coding Level of Care Code ED Pharmacognosist for Brigida Shelton
[2024-09-08 16:05] VITALS: BP 148/78; PULSE 89; O2SAT 95
== END 2024-09-08 16:07 | disposition home or self-care (01) ==
PROVIDERS: Emergency Provider Physician Assistant; PCP Nurse Practitioner Family
DX: Z48.02 Encounter for removal of sutures (principal)
CPT/HCPCS: 99281

== ENCOUNTER → 2025-03-30 16:42 | Outpatient (BNVA) | payer OTHER, SELFPAY | PROVIDERS: PCP Family Medicine; Visit Provider Family Medicine | DX: R82.90 Unspecified abnormal findings in urine (principal); Z76.89 Persons encountering health services in other specified circumstances | CPT/HCPCS: 81000; 87086 ==

== ENCOUNTER 2025-03-31 08:20 | Outpatient (CLI) | payer OTHER, SELFPAY ==
--- NOTE | 2025-03-31 08:24 | MM_ITS ---
WS: [id number] BILATERAL SCREENING DIGITAL TOMOSYNTHESIS MAMMOGRAM WITH CAD HISTORY: SCREENING COMPARISON: 11/27/2023, 11/07/2022 Bilateral CC and MLO views with tomosynthesis and synthetic mammography submitted. Computer aided detection analyzed. Breast composition: There are scattered areas of fibroglandular density. No suspicious masses, microcalcifications or architectural distortion. Numerous benign scattered calcifications in each breast. Greater calcifications in the LEFT breast. MM/MM scr tomosynthesis [id number] IMPRESSION: BI-RADS: 2 - Benign. FOLLOW UP: 1 Year Follow-up
== END 2025-03-31 08:21 | disposition home or self-care (01) ==
LOC: RAD 08:21
PROVIDERS: PCP Family Medicine; Visit Provider Nurse Practitioner Family
DX: Z12.31 Encounter for screening mammogram for malignant neoplasm of breast (principal)
CPT/HCPCS: 77063; 77067

== ENCOUNTER → 2025-05-05 09:19 | Outpatient (BNVA) | payer OTHER, SELFPAY | PROVIDERS: PCP Family Medicine; Visit Provider Family Medicine | DX: Z12.4 Encounter for screening for malignant neoplasm of cervix (principal); Z00.00 Encounter for general adult medical examination without abnormal findings; R19.7 Diarrhea, unspecified | CPT/HCPCS: 80053; 80061; 83690; 84443; 85025; 86003; 86008; 87624 ==